=== PATIENT | male | born 1990 | race Caucasian/White ===

== ENCOUNTER → 2016-09-27 | Outpatient (CLI) | payer BC ==
--- NOTE | 2016-09-27 13:12 | RADIOLOGY REPORT PS360 ---
US SCROTUM COMPARISON: None HISTORY: Midline scrotal pain TECHNIQUE: Targeted ultrasound the testicles FINDINGS: Both testicles are normal size showing normal homogeneous echogenicity and there is good vascularity to both testicles. The right epididymis appears normal. There may be slight swelling of the left epididymis was slightly increased vascularity . There is no hydrocele on either side. IMPRESSION: Normal-appearing testicles very questionable and or early left-sided epididymitis and suggest clinical correlation
== END ==
LOC: RAD 09:54
DX: N50.819 Testicular pain, unspecified (principal)